=== PATIENT | female | born 2005 | race Caucasian/White ===

== ENCOUNTER 2024-05-28 03:47 | Emergency (ER) | payer MEDICAID, SELFPAY ==
[2024-05-28 03:48] VITALS: BMI 30.9
[2024-05-28 03:56] VITALS: BP 130/86; PULSE 66; RESP 17; TEMP 36.8; O2SAT 99
--- NOTE | 2024-05-28 04:28 | PD.EDRME ---
Rapid Medical Screening Exam RME Arrival date/time: 05/28/24 03:47 Chief Complaint: Dental/Oral/Throat Time Seen by Provider: 05/28/24 03:59 Vital signs: Vital Signs Temperature 98.3 F 05/28/24 03:56 Pulse Rate 66 05/28/24 03:56 Respiratory Rate 17 05/28/24 03:56 Blood Pressure 130/86 H 05/28/24 03:56 Pulse Oximetry (%) 99 05/28/24 03:56 Oxygen Delivery Method Room Air 05/28/24 03:56 Vital signs reviewed by provider: Yes RME Narrative: 19-year-old female brought in by mom for evaluation of acute central jaw pain x 1 day. 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 She denies fever, chills, night sweats, unplanned weight loss.
[2024-05-28 05:12] VITALS: BP 114/62; PULSE 60; RESP 20; TEMP 36.7; O2SAT 99
[2024-05-28 05:19] LABS: HCG Qualitative,Urine Negative
[2024-05-28] MEDS: KETOROLAC INJ 30 MG/ML VIAL IM (06:39)
[2024-05-28 07:35] VITALS: BP 118/72; PULSE 78; RESP 16; TEMP 36.8; O2SAT 99
--- NOTE | 2024-05-28 09:00 | EDNOTE_ITS ---
ED Dental RME/HPI General Chief complaint: Dental/Oral/Throat Stated complaint: CHIN/ TOOTH PAIN Time Seen by Provider: 05/28/24 03:59 Arrival date/time: 05/28/24 03:47 RME / HPI RME / HPI Narrative: 19-year-old female brought in by mom for evaluation of anterior mental area pain evidently for 1 day. 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 She has no redness. There is no discharge. There has been no injury or trauma. She had surgery with Dr. Daley at the [facility] clinic in [place] and has done well since that time. Mom states it was a benign bone cyst. And evidently things healed quite well. Now she has pain in an area similar to where the previous problem was located. She has no dental pain She denies fever, chills, night sweats, unplanned weight loss. Related Data Home Medications ?Medication ?Instructions ?Recorded ?Confirmed No Known Home Medications 04/22/1904/13 Allergies Allergy/AdvReac Type Severity Reaction Status Date / Time amoxicillin Allergy Severe HIVES Verified 04/22/19 21:00 Review of Systems Review of Systems Narrative Review of Systems: Constitutional: DENIES; Fevers Eyes: DENIES; Loss of vision Head/Ear/Nose: DENIES; Loss of hearing Throat: SEE HPI. DENIES; Dysphagia Cardiovascular: DENIES; Chest pain, dyspnea or syncope Respiratory: DENIES; Shortness of breath Gastrointestinal: DENIES; Rectal bleeding or melena. Genitourinary: DENIES; Dysuria (painful or difficult urination) Musculoskeletal: DENIES; Arthralgia (pain in a joint),; Skin: DENIES; Rash Neurological: DENIES; Loss of function or movement Psychiatric: DENIES; recent major life stressor, emotional problem, illicit drug use or abuse Endocrinology: DENIES; Weight change Hematologic/Lymphatic: DENIES; Abnormal bruising Allergic/Immunologic: DENIES; Urticaria (hives) Past Medical History Past Medical History CARDIAC: Negative Cardiac Disorders or Congestive Heart Failure RESPIRATORY: Negative Chronic Obstructive Pulmonary Disease (COPD) or Asthma GENITOURINARY: Negative Renal Disease ENDOCRINE: Negative Diabetes Mellitus Type 1 or Diabetes Mellitus Type 2 HEMATOLOGIC: Negative Sickle Cell Disease Surgical History SURGICAL: Positive Neurologic Surgery and Brain Shunt Social History SMOKING STATUS: Never smoker ED Exam Narrative Physical exam: Physical Exam: General: The vital signs were reviewed. The patient is non-toxic, in no apparent distress and appears healthy with a patent airway, no respiratory distress and has no apparent circulatory problems. Head & Scalp: Normocephalic, atraumatic. Face: Appears normal and is without lesions, deformity. Questionable tenderness anteriorly just superior of the jaw with no induration redness or lesion seen. Ears: Left external pinna appears normal. Right external pinna appears normal. Eyes: The sclera is anicteric. No obvious photophobia. The Left and Right Orbit/Lid/Conjunctiva appears normal without swelling, discoloration or injection. Nose: The nose is without deformity, discharge or tenderness; Throat: Appears normal. The mucous membranes are pink and moist without exudates, redness or mass seen. The tongue appears normal. With gloves on both hands palpated the gum lines on the inner and outer lower mandible and there is no palpable mass there is no obvious tenderness. There is no adenopathy in the outer neck in the submental area. There is no adenopathy in the submandibular area and there is no anterior chain or posterior chain adenopathy. She moves her head neck freely. Neck: The neck is supple and no apparent mass or adenopathy. Chest: The chest wall is normal in size and symmetry and has no chest wall tenderness or crepitus. The patient displays normal ventilator effort without retractions, accessory muscle use and has adequate air movement bilaterally with no wheezes and no rales. Cardiovascular: Regular rate and rhythm; No murmurs, rubs, or gallops; Gastrointestinal: The abdomen appears normal. No obvious hernias or mass. The abdomen is soft and benign, non-distended, with no pain, no guarding and no rebound tenderness. Bowel sounds are present and normal sounding. No CVA tenderness. Genitourinary: Back/Spine: Extremities/Musculoskeletal/lymphatic: The bilateral upper and lower extremities are warm. There is no evidence of arterial insufficiency. There is no evidence of venous insufficiency/edema. The patient spontaneously moves bilateral upper and lower extremities with no pain and no limitation of movement. There is no apparent, injury or trauma. Skin: The skin is warm, dry and intact. No rashes. No petechia. No purpura. No abnormal bruising. The color is appropriate with no cyanosis. Mental status/Psychiatric: Mental status is appropriate for age. The patient has no apparent delusions, visual hallucinations, no apparent audible hallucinations. The patient has no apparent suicidal thoughts/ideation and no apparent homicidal thoughts/ideation. Neurological: The patient is awake, alert, interactive, cordial, cooperative and is oriented to name and situation. The patient follows commands and answers historical question with no impairment. There is no visual disturbance apparent. The pupils are equal and reactive bilaterally with normal eye movements and no diplopia The bilateral upper and lower extremities have normal strength, normal range of motion and normal functioning. The gait, station and balance appear to be baseline with no acute change Course Quality Measures none Orders Category Date Time Status CT Screening NOW Care 05/28/24 04:27 Completed Insert IV NOW Care 05/28/24 04:27 Completed HCG Qualitative,Urine Stat Lab 05/28/24 04:30 Completed Ketorolac Inj [Toradol Inj] Med 05/28/24 06:15 Discontinued 30 mg IM X1 ONE Vital Signs Vital signs: Vital Signs Temperature 98.3 F 05/28/24 03:56 Pulse Rate 66 05/28/24 03:56 Respiratory Rate 17 05/28/24 03:56 Blood Pressure 130/86 H 05/28/24 03:56 Pulse Oximetry (%) 99 05/28/24 03:56 Oxygen Delivery Method Room Air 05/28/24 03:56 Pulse ox is 99% on room air which is adequate. Dental / Oral MDM Narrative MDM Narrative:: Patient is a 19-year-old with pain in her mental anterior jaw area with no obvious objective finding and uncertain if this is related to a previous bone cyst that was had surgery and somehow recurring or if this is an early dental abscess with pain. She has no dental tenderness she has no intolerance to cold or heat. Original plan by the [facility] was to get a CT of her jaw but patient has an established relation with an [facility] surgeon in [place] who did the previous surgery and to spare radiation to her for what might be a simple dental problem developing we had a discussion and mom and patient stated they would wait on the CT scan and follow-up with her dentist and call the [facility] clinic in [place] to get a urgent follow-up appointment. There clearly is no threat or serious medical problem at this time. But they are advised to return if redness increasing pain or mass develops. They are comfortable with ibuprofen 4 to 600 mg every 6 hours with some food to protect the stomach as needed for pain control. And the CT scan was canceled f or now. Patient data External records reviewed:: [facility] previous records (I reviewed ED visit on 05/01/2018 ) Clinical information provided by:: patient Social determinants that could affect healthcare access:: none Patient has the following chronic illnesses:: No chronic medical hx reported How is presenting disease/condition affected by chronic disease/condition?: no chronic disease Evaluation data The following diagnostics were reviewed and interpreted by me:: lab results Lab and/or radiology exams considered but not ordered:: None Interpretation Summary: As noted above Medications / Prescriptions Medications or Prescriptions considered but not ordered:: None Medication administrations:: Medication Administration History Discontinued Medications Ketorolac Tromethamine (Ketorolac Inj 30 Mg/Ml Vial) 30 mg IM X1 ONE Stop: 05/28/24 06:16 Last Admin: 05/28/24 06:39 Dose: 30 mg Documented By: CCT See above Consultations Consultation(s) initiated? (list below): No Diagnosis Dental Differential Diagnosis: gingival abscess, dental caries, toothache, dental abscess, fracture of tooth and aphthous ulcer Most likely diagnosis given after review of the tests above:: Mandible pain Admission Indicated Admission indicated?: not indicated Admission Request Was there a request for admission?: No Disposition Plan Disposition Plan: Discharge Discharge Attestation Discharge Attestation: The patient and all family members were given an opportunity to ask questions and understood the discharge instructions. Discharge instructions specifically effects, indications for sooner follow up or return to the emergency department, and the expected course of current diagnosis. Patient condition: Stable Discharge Plan Plan Patient Disposition: HOME (Self Care) Prescriptions/Referrals Prescriptions/Med Rec: No Action No Known Home Medications Referrals: Tomás ([facility])Heather PA-C [Primary Care Provider] - In 1 week Problem List Clinical Impression: Mandible pain Impression comment: s Supra- mental pain rule out dental abcess Patient/Caregiver Discharge Instructions Additional Instructions: As we discussed the cause of this pain just above the anterior jaw could be a dental problem or could be a recurring problem from your previous bone cyst. Since there is no redness or obvious infection at this time getting a better diagnosis would be important. Please call the [facility] clinic at [facility] and see Dr. Daley and his team since they cared for you in the past. Also advisable to see your dentist and tell them you should be seen next to 3 days so they can rule out a dental abscess or early dental abscess. If you are getting redness increasing pain or worse anyway come back or see your dentist. The [facility] in [place]'s location with Dr. Daley and the [facility] team works. You can use ibuprofen 400 to 600 mg take it with food as needed every 6 hours to control your pain. Print Language: German Stand Alone Forms: Leana Award Info., Patient Portal Info Letter
[2024-05-28 09:06] VITALS: BP 122/66; PULSE 71; RESP 12; O2SAT 98
== END 2024-05-28 09:39 | disposition home or self-care (01) ==
PROVIDERS: Physician Assistant; Emergency Provider Emergency Medicine; PCP Physician Assistant
DX: R68.84 Jaw pain (principal)
CPT/HCPCS: 81025; 96372; 99283; J1885

== ENCOUNTER 2024-05-29 11:30 | Emergency (ER) | payer MEDICAID, SELFPAY ==
[2024-05-29 11:47] VITALS: BP 131/84; PULSE 63; RESP 18; TEMP 36.9; O2SAT 99; BMI 27.3
--- NOTE | 2024-05-29 11:52 | XR_ITS ---
Examination: CT maxillofacial, with contrast 2-D sagittal and coronal reconstructions. 3-D reconstructions Date and time of exam:May 29, 2024 1754 hours INDICATIONS: Jaw pain beginning 3 days ago CTDI: vol (mGy):17.5 DLP: (mGycm):345 Technique: Multiple axial images maxillofacial region, 3.0 mm slice thickness, post intravenous injection 50 cc Isovue-370 cc Isovue 370. 2-D sagittal coronal reconstructions. 3-D reconstructions Low dose protocols were performed. One or more of the following dose reduction techniques were used; automated exposure control, adjustment of the mA and/or KV according to patient size, use of iterative reconstruction technique. Findings: Orbital rims frontal bone is intact Nasal bone fracture not evident Intact maxilla Soft tissue edema anteriorly below the mandibular symphysis Cystic mass in the symphysis mandible, 9 mm with break in the cortex of the mandible anteriorly at this site Right mandibular molar dental caries IMPRESSION: 9 mm cystic lesion with cortical fracture symphysis of the mandible, differential would include dentigerous cyst as well as dental caries with osteomyelitis of the mandible,, associated cellulitis in the soft tissue anterior and below the symphysis of the mandible Right mandibular molar dental caries
--- NOTE | 2024-05-29 11:53 | PD.EDRME ---
Rapid Medical Screening Exam RME Arrival date/time: 05/29/24 11:30 19-year-old female presents to the emergency department today with complaints of pain and swelling to her chin patient reports previous history of cyst requiring surgery Chief Complaint: General Adult/Misc Complain Vital signs: Vital Signs Temperature 98.5 F 05/29/24 11:47 Pulse Rate 63 05/29/24 11:47 Respiratory Rate 18 05/29/24 11:47 Blood Pressure 131/84 H 05/29/24 11:47 Pulse Oximetry (%) 99 05/29/24 11:47 Oxygen Delivery Method Room Air 05/29/24 11:47
[2024-05-29 12:37] LABS: Basophils % (Auto) 0 % (0-2.5); Eosinophils % (Auto) 0 % (0-10); Hematocrit 40.4 % (36.0-46.0); Hemoglobin 12.8 g/dL (12.0-16.0); Immature Granulocytes % (Auto) 0 % (0-0); Immature Granulocytes Auto 0.04 Thou/mm3 (0.00-0.00); Lymphocytes # (Auto) 1.1 Thou/mm3 (1.0-4.8); Lymphocytes % (Auto) 10 % (10-50); Mean Corpuscular HGB Conc 31.7 g/dl (31.0-37.0); Mean Corpuscular Hemoglobin 26.2 pg (25.0-35.0); Mean Corpuscular Volume 83 fL (80-100); Monocytes # (Auto) 0.4 Thou/mm3 (0.0-0.8); Monocytes % (Auto) 3 % (0-12); Neutrophils # (Auto) 10.2 Thou/mm3 (1.8-7.7); Neutrophils % (Auto) 87 % (37-80); Nucleated Red Blood Cell % 0 /100 WBC (0); Platelet Count 263 Thou/mm3 (140-440); RDW Standard Deviation 42.5 fL (36.4-46.3); Red Blood Count 4.89 Miln/mm3 (4.00-5.20); White Blood Count 11.8 Thou/mm3 (4.5-11.0)
[2024-05-29 12:56] LABS: Alanine Aminotransferase 13 U/L (10-49); Albumin, Serum 4.8 gm/dL (3.5-5.0); Albumin/Globulin Ratio 1.9 (1.2-2.2); Alkaline Phosphatase 81 U/L (46-116); Anion Gap 11 (7-16); Aspartate Amino Transferase 16 U/L (0-34); BUN/Creatinine Ratio 7 Ratio (12-20); Bilirubin,Total 0.5 mg/dL (0.3-1.2); Blood Urea Nitrogen < 5 mg/dL (9-23); Calcium 9.6 mg/dL (8.3-10.6); Calcium (Corrected) 9.6 mg/dL (8.5-10.1); Carbon Dioxide 25.6 mMol/L (20.0-31.0); Chloride 103 mMol/L (98-107); Creatinine (Component) 0.7 mg/dL (0.6-1.3); Estimated Creatinine Clearance 143.7 mL/min (>60); Globulin 2.5 gm/dL (2.3-3.5); Glucose 106 mg/dL (74-106); Osmolality,Calculated 276 (275-295); Sodium 140 mMol/L (136-145); Total Protein 7.3 gm/dL (5.7-8.2); eGFR > 60 See Note
[2024-05-29] MEDS: ONDANSETRON ODT 4 MG TABRAP PO (17:17)
[2024-05-29] MEDS: HYDROcodone/APAP 5/325 TABLET 1 TAB PO (17:36)
--- NOTE | 2024-05-29 19:39 | EDNOTE_ITS ---
ED Dental RME/HPI General Chief complaint: General Adult/Misc Complain Stated complaint: PAIN IN JAW, SENT BY PCP FOR CT SCAN, VOMITING Time Seen by Provider: 05/29/24 19:17 Source: patient and family Arrival date/time: 05/29/24 11:30 Mode of arrival: ambulatory Limitations: no limitations RME / HPI RME / HPI Narrative: 05/29/24 11:30 19-year-old female presents to the emergency department today with complaints of pain and swelling to her chin patient reports previous history of cyst requiring surgery. Dr. Henning?s Main ED Evaluation: 19-year-old female presents with anterior dental area pain since Monday, accompanied by radiating pain from the affected area to her jaw and head. She describes the pain as stabbing and localized to the region of a prior surgical site where she previously had a mass removed, which is tender to touch and sometimes affecting her ability to talk and eat. She denies redness, discharge, trauma, or actual dental pain. Her medical history is significant for a benign bone cyst, which required surgical intervention [address] Teddy Daley III, DDS[facility] an oral and maxillofacial surgeon in [place], [place]. Her mother reports that the procedure had a successful outcome, with complete healing and no complications since. However, the current pain closely resembles the discomfort experienced before her previous diagnosis. There are no associated systemic symptoms such as fever, swelling, or recent infections. Related Data Previous Rx's ?Medication ?Instructions ?Recorded acetaminophen 500 mg capsule 1,000 mg (2 x 500 mg) PO Q6H PRN 05/29/24 pain #30 caps clindamycin HCl 300 mg capsule 300 mg PO Q6H Dental in fection 10 05/29/24 days #40 caps ibuprofen 600 mg tablet 600 mg PO Q6H PRN pain #20 t abs 05/29/24 Allergies Allergy/AdvReac Type Severity Reaction Status Date / Time amoxicillin Allergy Severe HIVES Verified 05/29/24 11:35 Review of Systems Review of Systems Systems Reviewed: All systems reviewed, normal except as documented Past Medical History Past Medical History CARDIAC: Negative Cardiac Disorders or Congestive Heart Failure RESPIRATORY: Negative Chronic Obstructive Pulmonary Disease (COPD) or Asthma GENITOURINARY: Negative Renal Disease ENDOCRINE: Negative Diabetes Mellitus Type 1 or Diabetes Mellitus Type 2 HEMATOLOGIC: Negative Sickle Cell Disease Surgical History SURGICAL: Positive Neurologic Surgery and Brain Shunt Social History SMOKING STATUS: Never smoker ED Exam General Limitations: Present no limitations General appearance: Present alert and in no apparent distress Head Head exam: Present atraumatic Eye Eye exam: Present normal appearance, PERRL and EOMI ENT ENT exam: Present normal exam, normal oropharynx and mucous membranes moist Expanded ENT Exam Mouth exam: Present other (Mild midline chin swelling noted. Mild anterior lower midline gingival swelling with tenderness, but no erythema or signs of infection.) Throat exam: Present other Neck Neck exam: Present normal inspection, full ROM and trachea midline Chest Chest inspection: Present normal inspection and symmetric chest wall rise Respiratory Respiratory exam: Present normal lung sounds bilaterally Cardiovascular Cardiovascular exam: Present regular rate, normal rhythm and normal heart sounds Abdominal Exam Abdominal exam: Present soft and normal bowel sounds Extremities Exam Extremities exam: Present normal inspection and full ROM Back Exam Back exam: Present normal inspection and full ROM Neurological Exam Neurological exam: Present alert, oriented X3 and CN II-XII intact Psychiatric Psychiatric exam: Present normal affect and normal mood Skin Skin exam: Present warm, dry, intact and normal color Course Quality Measures none Orders Category Date Time Status CT Screening NOW Care 05/29/24 11:52 Completed Insert IV NOW Care 05/29/24 11:[address] facial bones w con Stat Exams 05/29/24 11:52 Completed B-Type Natriuretic Peptide Stat Lab 05/29/24 20:39 Completed Blood Culture (Lab) Stat Lab 05/29/24 20:44 Received CBC Stat Lab 05/29/24 12:04 Completed CMP [Comprehensive Metabolic Panel] Stat Lab 05/29/24 12:04 Completed LDH (Lactate Dehydrogenase) Stat Lab 05/29/24 20:39 Completed Lactate (Lactic Acid) Stat Lab 05/29/24 20:39 Completed Magnesium Stat Lab 05/29/24 20:39 Completed Phosphorous Stat Lab 05/29/24 20:39 Completed Procalcitonin Stat Lab 05/29/24 20:39 Completed Prothrombin Time with INR Stat Lab 05/29/24 20:39 Completed Acetaminophen Ivpb [Ofirmev Inj] Med 05/29/24 20:19 Discontinued 1,000 mg in 100 ml IV X1 Clindamycin/Ns 600 mg Ivpb [Cleocin/Ns Ivpb] Med 05/29/24 20:17 Discontinued 600 mg in 50 ml IV X1 HYDROcodone*/APAP 5/325 [[place] 5/325] Med 05/29/24 17:01 Discontinued 1 tab PO X1 ONE HYDROmorphone INJ [Dilaudid Inj] Med 05/29/24 20:30 Discontinued 0.5 mg IVP Q30MIN PRN Ondansetron Odt [Zofran Odt] Med 05/29/24 17:01 Discontinued 4 mg PO X1 ONE Vital Signs Vital signs: Vital Signs Temperature 98.5 F 05/29/24 11:47 Pulse Rate 63 05/29/24 11:47 Respiratory Rate 18 05/29/24 11:47 Blood Pressure 131/84 H 05/29/24 11:47 Pulse Oximetry (%) 99 05/29/24 11:47 Oxygen Delivery Method Room Air 05/29/24 11:47 Dental / Oral MDM Narrative MDM Narrative:: 19-year-old female presenting with anterior dental area pain since Monday, with radiating stabbing pain extending from the affected region to her jaw and head. The pain is localized to the site of a previous benign bone cyst removal and is tender to touch, intermittently affecting her ability to talk and eat. She denies redness, discharge, trauma, or true dental pain. Given her history of prior cyst removal and recurrent localized pain, a CT maxillofacial with contrast was obtained for further evaluation. [facility] was contacted at 1940 hours to discuss case with Dr. Teddy Daley III, DDS, MD, but they declined consultation. [facility] will be contacted to initiate transfer for higher-level OMFS evaluation and management. [id number] The patient was evaluated in the ED today and underwent a CT scan of the face, which revealed a bony cyst in the jawbone. A disc containing the CT scan has been provided to the patient for follow-up evaluation. Attempts were made to contact the patient's maxillofacial surgeon, Dr. Teddy Daley, but we were unable to reach him. The patient has been advised to call Dr. Daley?s office in the morning to schedule an appointment within the next several days and to bring the CT scan disc to the visit. Given the patient's stable condition and the absence of emergent indications for transfer, the decision was made to discharge the patient rather than transfer [facility] at [facility] time. The patient has been provided with appropriate discharge instructions and follow-up recommendations. Scribe Attestation: I, Noreen Gamble, am scribing for and in the presence of Dr. Henning. Provider Notation: Although this document has been carefully reviewed, there may still be some phonetic and other typographical errors. These errors are purely grammatical due to imperfections in the software program and should not be construed in any way to compromise the substance of the patient's medical care during this visit. Patient data External records reviewed:: [facility] previous records Clinical information provided by:: patient Social determinants that could affect healthcare access:: none Patient has the following chronic illnesses:: see PMH How is presenting disease/condition affected by chronic disease/condition?: uneffected by Evaluation data The following diagnostics were reviewed and interpreted by me:: lab results and radiology exam(s) Lab and/or radiology exams considered but not ordered:: na Interpretation Summary: Examination: CT maxillofacial, with contrast Date and time of exam:May 29, 2024 1754 hours INDICATIONS: Jaw pain beginning 3 days ago Findings: Orbital rims frontal bone is intact Nasal bone fracture not evident Intact maxilla Soft tissue edema anteriorly below the mandibular symphysis Cystic mass in the symphysis mandible, 9 mm with break in the cortex of the mandible anteriorly at this site Right mandibular molar dental caries IMPRESSION: 9 mm cystic lesion with cortical fracture symphysis of the mandible, differential would include dentigerous cyst as well as dental caries with osteomyelitis of the mandible,, associated cellulitis in the soft tissue anterior and below the symphysis of the mandible Right mandibular molar dental caries Dictated By: Ethan Delong MD Medications / Prescriptions Medications or Prescriptions considered but not ordered:: na Medication administrations:: Medication Administration History Discontinued Medications Hydrocodone Bitart/Acetaminophen (Hydrocodone/Apap 5/325 Tablet) 1 tab PO X1 ONE Stop: 05/29/24 17:02 Last Admin: 05/29/24 17:36 Dose: 1 tab Documented By: Hydromorphone HCl (Hydromorphone Inj 2 Mg/Ml Vial) 0.5 mg IVP Q30MIN PRN PRN Reason: PAIN Stop: 05/30/24 20:29 Last Admin: 05/29/24 22:53 Dose: 0.5 mg Documented By: EE Clindamycin/Sodium Chloride (Cleocin/Ns Ivpb) 600 mg in 50 mls @ 100 mls/hr IV X1 ONE Stop: 05/29/24 20:46 Last Infusion: 05/29/24 22:11 Dose: Infused Documented By: Admin: 05/29/24 20:54 Dose: 100 mls/hr Documented By: EE Acetaminophen (Ofirmev Inj) 1,000 mg in 100 mls @ 250 mls/hr IV X1 ONE Stop: 05/29/24 20:42 Last Infusion: 05/29/24 22:10 Dose: Infused Documented By: Admin: 05/29/24 20:54 Dose: 250 mls/hr Documented By: EE Ondansetron HCl (Ondansetron Odt 4 Mg Tabrap) 4 mg PO X1 ONE; Protocol Stop: 05/29/24 17:02 Last Admin: 05/29/24 17:17 Dose: 4 mg Documented By: as above, if any Consultations Consultation(s) initiated? (list below): Yes Diagnosis Dental Differential Diagnosis: other (dental infection, dental abscess, facial cellulitis, bone cyst) Most likely diagnosis given after review of the tests above:: Bony cyst with facial cellulitis Admission Indicated Admission indicated?: not indicated Admission Request Was there a request for admission?: No Disposition Plan Disposition Plan: Discharge Discharge Attestation Discharge Attestation: The patient and all family members were given an opportunity to ask questions and understood the discharge instructions. Discharge instructions specifically effects, indications for sooner follow up or return to the emergency department, and the expected course of current diagnosis. Patient condition: Stable Critical Care Time Critical Care Time Critical Care Time: Yes Total Critical Care Time (min.): 35 Attestation: The high probability of sudden, clinically significant deterioration in the patient?s condition required the highest level of my preparedness to intervene urgently. ? The services I provided to this patient were to treat and/or prevent clinically significant deterioration. Services included the following: chart data review, reviewing nursing notes and/or old charts, documentation time, farm consultant collaboration regarding findings and treatment options, medication orders and management, direct patient care, vital sign assessments and ordering, interpreting and reviewing diagnostic studies and lab tests. ? Aggregate critical care time includes only time during which I was engaged in work directly related to the patient?s care, as described above, whether at [facility] or elsewhere in the Emergency Department. It did not include time spent performing other reported procedures or the services of residents, students, nurses or physician assistants. Discharge Plan Plan Patient Disposition: HOME (Self Care) Disposition Comment: Stable for discharge home Patient condition on transfer: Stable Prescriptions/Referrals Prescriptions/Med Rec: New ibuprofen 600 mg tablet 600 mg PO Q6H PRN (Reason: pain) Qty: 20 0RF acetaminophen 500 mg capsule 1,000 mg PO Q6H PRN (Reason: pain) Qty: 30 0RF clindamycin HCl 300 mg capsule 300 mg PO Q6H 10 Days Qty: 40 0RF Referrals: Tomás MARTINEZ)Heather FNP [Primary Care Provider] - In 1 week Teddy Daley [Referring Provider] - In 1 week ( ) Problem List Clinical Impression: Bone cyst, Facial cellulitis, Jaw cyst Patient/Caregiver Discharge Instructions Discharge Activity: activity as tolerated Education Materials: ED Bone Cyst, ED Cellulitis, Facial Additional Instructions: Today in the emergency department you received a CT scan of your face. It showed that you have a bony cyst in your jawbone. There is also what appears to be some infection adjacent to that cyst. We have given you a disc with the CT scan images. You should bring that with you when you follow-up with your maxillofacial surgeon. We tried to get a hold of your maxillofacial surgeon, Dr. Teddy Arreola. Unfortunately we were unable to do so. You should call his office in the morning and make an appointment to be seen within the next several days. Please remember to bring your disc with you when you go. You should bring these papers with you as well. Your CT scan showed IMPRESSION: 9 mm cystic lesion with cortical fracture symphysis of the mandible, differential would include dentigerous cyst as well as dental caries with osteomyelitis of the mandible,, associated cellulitis in the soft tissue anterior and below the symphysis of the mandible Right mandibular molar dental caries Signed By: <Electronically signed by Ethan Delong MD in [place]> 05/29/241821 I have called in several prescriptions to your pharmacy. One of them is called clindamycin. This is your antibiotic. You should take this 4 times per day for the entire 10 days even if you feel better before that. Also there will be acetaminophen and ibuprofen prescriptions there. You should take these together every 6 hours for pain. I know your primary care doctor has called in a prescription for hydrocodone and you should take those sparingly. Those are best taken at night before you go to bed and you cannot drive after taking those. If you have any further medical problems that need to return to this ER and we will help you. Print Language: Swedish Stand Alone Forms: [facility]ana Award Info., Patient Portal Info Letter
[2024-05-29] MEDS: CLINDAMYCIN/NS 600 MG IVPB 600 MG/50 ML BAG 100 MG IV (20:54)
[2024-05-29] MEDS: ACETAMINOPHEN IVPB 1,000 MG/100 ML VIAL 250 MG IV (20:54)
[2024-05-29 21:09] LABS: INR 1.1 (0.9-1.3); Prothrombin Time 11.9 Seconds (9.0-12.2)
[2024-05-29 21:23] LABS: B-Type Natriuretic Peptide < 20 pg/mL (0-100)
[2024-05-29 21:24] LABS: LDH (Lactate Dehydrogenase) 153 U/L (120-246); Magnesium 2.1 mg/dL (1.6-2.6); Phosphorous 2.9 mg/dL (2.4-5.1)
[2024-05-29 21:31] LABS: Procalcitonin < 0.04 ng/ml (0.0-0.49)
--- NOTE | 2024-05-29 21:38 | PC.NURSE ---
[facility] FAXED PAPERWORK FOR POSSIBLE OMFS TRANSFER, PT SEES DR DEN GARCIA AND [facility] BUT HAS PRIVILEGES AT [facility]
[2024-05-29] MEDS: HYDROmorphone INJ 2 MG/ML VIAL 0.5 MG IVP (22:53)
[2024-05-29 23:24] VITALS: BP 115/72; PULSE 67; RESP 16; TEMP 37; O2SAT 98
== END 2024-05-30 01:05 | disposition home or self-care (01) ==
PROVIDERS: Nurse Practitioner Primary Care; Emergency Provider Emergency Medicine; PCP Nurse Practitioner Primary Care
DX: L03.211 Cellulitis of face (principal); M27.49 Other cysts of jaw
CPT/HCPCS: 36415; 70487; 80053; 83605; 83615; 83735; 83880; 84100; 84145; 85025; 85610; 87040; 96365; 96368; 96375; 99285; A4649; J0131; J3490; Q0162; Q9967; S0077; A9270; J0737

== ENCOUNTER 2024-09-27 00:59 | Emergency (ER) | payer OTHER, MEDICAID, SELFPAY ==
[2024-09-27 01:01] VITALS: BMI 29.2
[2024-09-27 01:13] VITALS: BP 127/84; PULSE 64; RESP 17; TEMP 36.7; O2SAT 98
[2024-09-27] MEDS: GABAPENTIN 300 MG CAPSULE PO (01:58)
--- NOTE | 2024-09-27 02:02 | EDNOTE_ITS ---
ED Dental RME/HPI General Chief complaint: Dental/Oral/Throat Stated complaint: ORAL PAIN WITH REDNESS Time Seen by Provider: 09/27/24 01:49 Arrival date/time: 09/27/24 00:59 19F with history of brain shunt for unknown condition as well as bony cysts presents to ED with jaw pain after R lower dental tooth and mandibular bone cyst removal recently at [facility]. Patient has been taking her prescribed meds including clindamycin. Patient has been taking [place], which has not helped. Patient then stopped that and switched to Tylenol/ibuprofen combo, which has also not helped. Patient stopped using the chlorhexidine mouth wash, but resumed it when she found it she was supposed to be using it. Limitations: no limitations Related Data Previous Rx's ?Medication ?Instructions ?Recorded acetaminophen 500 mg capsule 1,000 mg (2 x 500 mg) PO Q6H PRN 05/29/24 pain #30 caps ibuprofen 600 mg tablet 600 mg PO Q6H PRN pain #20 t abs 05/29/24 gabapentin 300 mg capsule 300 mg PO BID PRN nerve pain #14 09/27/24 caps Allergies Allergy/AdvReac Type Severity Reaction Status Date / Time amoxicillin Allergy Severe HIVES Verified 09/27/24 01:00 Review of Systems Review of Systems Systems Reviewed: All systems reviewed, normal except as documented Constitutional Constitutional: Reports system reviewed and no additional complaints, except as documented, Denies fever(s) and Denies headache(s) ENT Ears, Nose, Mouth, and Throat: Reports as per HPI, Reports dental pain, Denies disequilibrium and Denies headache(s) Cardiovascular Cardiovascular: Reports system reviewed and no additional complaints, except as documented, Denies chest pain and Denies dyspnea Respiratory Respiratory: Reports system reviewed and no additional complaints, except as documented, Denies cough and Denies dyspnea Gastrointestinal Gastrointestinal: Reports system reviewed and no additional complaints, except as documented, Denies abdominal pain, Denies nausea and Denies vomiting Neurologic Neurologic: Reports system reviewed and no additional complaints, except as documented, Denies confusion, Denies disequilibrium and Denies headache(s) Psychiatric Psychiatric: Denies confusion Past Medical History Past Medical History CARDIAC: Negative Cardiac Disorders or Congestive Heart Failure RESPIRATORY: Negative Chronic Obstructive Pulmonary Disease (COPD) or Asthma GENITOURINARY: Negative Renal Disease ENDOCRINE: Negative Diabetes Mellitus Type 1 or Diabetes Mellitus Type 2 HEMATOLOGIC: Negative Sickle Cell Disease Surgical History SURGICAL: Positive Neurologic Surgery and Brain Shunt Social History SMOKING STATUS: Never smoker ED Exam General Limitations: Present no limitations General appearance: Present alert and in no apparent distress Head Head exam: Present atraumatic Eye Eye exam: Present normal appearance, PERRL and EOMI ENT ENT exam: Present normal exam, normal oropharynx and mucous membranes moist Neck Neck exam: Present normal inspection, full ROM and trachea midline Chest Chest inspection: Present normal inspection and symmetric chest wall rise Respiratory Respiratory exam: Present normal lung sounds bilaterally Cardiovascular Cardiovascular exam: Present regular rate, normal rhythm and normal heart sounds Abdominal Exam Abdominal exam: Present soft and normal bowel sounds Extremities Exam Extremities exam: Present normal inspection and full ROM Back Exam Back exam: Present normal inspection and full ROM Neurological Exam Neurological exam: Present alert, oriented X3 and CN II-XII intact Psychiatric Psychiatric exam: Present normal affect and normal mood Skin Skin exam: Present warm, dry, intact and normal color Course Quality Measures none Orders Category Date Time Status Gabapentin [Neurontin] Med 09/27/24 01:50 Discontinued 300 mg PO X1 ONE Vital Signs Vital signs: Vital Signs Temperature 98.1 F 09/27/24 01:13 Pulse Rate 64 09/27/24 01:13 Respiratory Rate 17 09/27/24 01:13 Blood Pressure 127/84 09/27/24 01:13 Pulse Oximetry (%) 98 09/27/24 01:13 Oxygen Delivery Method Room Air 09/27/24 01:13 O2 at 98% on RA and WNLs Dental / Oral MDM Narrative MDM Narrative:: 19F with history of brain shunt for unknown condition as well as bony cysts pre sents to ED with jaw pain after R lower dental tooth and mandibular bone cyst removal recently at [facility]. Patient has been taking her prescribed meds including clindamycin. Patient has been taking [place], which has not helped. Patient then stopped that and switched to Tylenol/ibuprofen combo, which has also not helped. Patient stopped using the chlorhexidine mouth wash, but resumed it when she found it she was supposed to be using it. Physical exam reveals well-appearing incision in lower frontal gum line and R lower wisdom tooth socket. No active bleeding. Patient is afebrile, calm, and alert. Will trial gabapentin for nerve pain given proximity of surgery to dental nerves. Neurology Nurse given. Patient data External records reviewed:: [facility] previous records Clinical information provided by:: patient Social determinants that could affect healthcare access:: none Patient has the following chronic illnesses:: brain shunt for unknown condition as well as bony cysts How is presenting disease/condition affected by chronic disease/condition?: exacerbated by Evaluation data The following diagnostics were reviewed and interpreted by me:: other (specify) (none) Lab and/or radiology exams considered but not ordered:: not ordered Interpretation Summary: n/a Medications / Prescriptions Medications or Prescriptions considered but not ordered:: ordered Medication administrations:: Medication Administration History Discontinued Medications Gabapentin (Gabapentin 300 Mg Capsule) 300 mg PO X1 ONE Stop: 09/27/24 01:51 Last Admin: 09/27/24 01:58 Dose: 300 mg Documented By: SM above Consultations Consultation(s) initiated? (list below): No Diagnosis Dental Differential Diagnosis: gingival abscess, dental caries, toothache, dental abscess, fracture of tooth, aphthous ulcer and other (postop pain) Most likely diagnosis given after review of the tests above:: postop pain Admission Indicated Admission indicated?: not indicated Admission Request Was there a request for admission?: No Disposition Plan Disposition Plan: Discharge Discharge Attestation Discharge Attestation: The patient and all family members were given an opportunity to ask questions and understood the discharge instructions. Discharge instructions specifically effects, indications for sooner follow up or return to the emergency department, and the expected course of current diagnosis. Patient condition: Stable Discharge Plan Plan Patient Disposition: HOME (Self Care) Discharge Disposition comment: Stable Prescriptions/Referrals Prescriptions/Med Rec: New gabapentin 300 mg capsule 300 mg PO BID PRN (Reason: nerve pain) Qty: 14 0RF No Action ibuprofen 600 mg tablet 600 mg PO Q6H PRN (Reason: pain) Qty: 20 0RF acetaminophen 500 mg capsule 1,000 mg PO Q6H PRN (Reason: pain) Qty: 30 0RF Problem List Clinical Impression: Post-op pain Patient/Caregiver Discharge Instructions Education Materials: Managing Post-Op Pain at Home Additional Instructions: Please follow-up with PCP within 24-48 hours and return immediately if symptoms worsen. Continue taking other meds including mouth wash. [facility] and see if they want to see you sooner. Print Language: Arabic Stand Alone Forms: Patient Portal Info Letter NEIL/ELFEGO Supervising Physician NEIL/ELFEGO Supervising Physician: Dr. House
== END 2024-09-27 01:58 | disposition home or self-care (01) ==
LOC: SERX 01:53
PROVIDERS: Emergency Provider Emergency Medicine; PCP Physician Assistant
DX: G89.18 Other acute postprocedural pain (principal)
CPT/HCPCS: 99283; A9270